=== PATIENT | male | born 1970 | race Caucasian/White ===

== ENCOUNTER 2017-09-03 14:45 | Emergency (ER) | payer OTHER ==
[2017-09-03 14:57] VITALS: BP 110/60
[2017-09-03 15:44] LABS: CLARITY,URINE HAZY; COLOR,URINE RED
[2017-09-03 15:46] LABS: BACTERIA,URINE 0 /HPF (0-FEW)
[2017-09-03] MEDS ORDERED: SULF1TAB24 PO (15:55)
[2017-09-03] MEDS ORDERED: PHEN100T82 PO (15:55)
--- NOTE | 2017-09-03 15:57 | PHYS DOC ---
General Chief Complaint: URINARY FREQUENCY Stated Complaint: UTI Time Seen by MD: 14:56 Source: patient Exam Limitations: no limitations Problems: History of Present Illness Initial Comments Male who comes to the ED complaining of dysuria. Patient states that he's had burning with urination starting last night. He's been taking [id number] Azo [facility] states that they deferred him to the ED. On questioning he's also had some suprapubic discomfort, denies any flank pain nausea vomiting fever chills pain with bowel movements history of prostatitis or possible STI exposure. No prior urinary tract infection, no discharge/testicular pain. Timing/Duration: 24 hours Severity: moderate Modifying Factors: improves with other Associated Symptoms: other Past Medical History Medical History: no pertinent history Surgical History: noncontributory Social History Smoker: cigarettes Alcohol: rarely Drugs: none Review of Systems Constitutional: denies chills, denies diaphoresis, denies fever, denies malaise Respiratory: denies cough, denies shortness of breath Cardiovascular: denies chest pain, denies palpitations Gastrointestinal: see HPI Genitourinary: see HPI Musculoskeletal: denies back pain, denies joint swelling, denies neck pain Psychiatric/Neurological: denies headache, denies numbness, denies paresthesia Physical Exam General Appearance: WD/WN, no apparent distress Ear, Nose, Throat: hearing grossly normal, normal ENT inspection Neck: full range of motion, supple Respiratory: no respiratory distress, no accessory muscle use Gastrointestinal: normal bowel sounds, non tender, soft Back: normal inspection, no CVA tenderness Extremities: normal range of motion, normal inspection Neurologic/Psychiatric: 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 I discussed treatment options patient is agreeable. Will follow up with his doctor for urine culture results. Advised to stop smoking. Departure Time of Disposition: 15:56 Disposition: 01 HOME, SELF-CARE Diagnosis: urinary tract infection Condition: GOOD Patient Instructions: Urinary Tract Infection Additional Instructions: Aggressive hydration with Gatorade and water. [id number] Tylenol and ibuprofen as needed. Prescription: Bactrim DS, Pyridium Follow-up with your doctor in 7-10 days for recheck and urine culture results. If symptoms persist may need outpatient urology referral. Return to the ED with new or changing symptoms. DEXTER SANTA DO Sep 03, 2017 15:57
== END 2017-09-03 16:06 | disposition home or self-care (01) ==
LOC: ER 14:45
DX: N39.0 Urinary tract infection, site not specified (principal); F17.210 Nicotine dependence, cigarettes, uncomplicated
CPT/HCPCS: 81001; 87086; 99284